=== PATIENT | female | born 1955 | race Caucasian/White ===

== ENCOUNTER 2020-10-31 14:20 | Outpatient (REF) | payer MEDICAID, SELFPAY | END 2020-10-31 14:21 | disposition home or self-care (01) | LOC: HO.RESP 14:20 | PROVIDERS: PCP Nurse Practitioner Family; Visit Provider Internal Medicine Pulmonary Disease | DX: Z13.89 Encounter for screening for other disorder (principal) ==

== ENCOUNTER → 2020-11-20 11:29 | Outpatient (BNVA) | payer MEDICAID, SELFPAY | PROVIDERS: PCP Nurse Practitioner Family; Visit Provider Surgery | DX: K43.2 Incisional hernia without obstruction or gangrene (principal) | CPT/HCPCS: 99212 ==

== ENCOUNTER → 2021-01-02 13:13 | Outpatient (BNVA) | payer MEDICAID, SELFPAY | PROVIDERS: PCP Nurse Practitioner Family; Visit Provider Internal Medicine | DX: I47.1 Supraventricular tachycardia (principal); I25.10 Atherosclerotic heart disease of native coronary artery without angina pectoris | CPT/HCPCS: 93005; 99202 ==

== ENCOUNTER → 2021-01-25 10:25 | Outpatient (REF) | payer MEDICAID, SELFPAY ==
--- NOTE | 2021-01-25 11:20 | ECG_ITS ---
Hook-up date: 2021-01-25 10:35:00 Duration: 47:59:00 Test Indications: I47.1 - Supraventricular tachyc Medications: 323706 QRS complexes 206 Ventricular ectopics which represent <1 % of total QRS comp. 34 Supraventricular ectopics which represent <1 % of total QRS comp. * Paced QRS complexs which represent % of total QRS comp. VENTRICULAR ECTOPY 198 Isolated 0 Bigeminal Cycles 4 Couplets 0 Runs 0 Beats in Runs * Beats LONGEST at * BPM at :: -- * Beats FASTEST at * BPM at :: -- SUPRAVENTRICULAR ECTOPY 27 Isolated 2 Couplets 1 Runs 3 Beats in Runs 3 Beats LONGEST at 121 BPM at 14:49:06 2021-01-26 3 Beats FASTEST at 121 BPM at 14:49:06 2021-01-26 HEART RATES 76 MIN at 23:11:59 2021-01-25 92 AVG 148 MAX at 21:52:24 2021-01-26 LONGEST RR 0.8240 secs at 04:52:15 2021-01-27 S-T LEVELS Channel 1 - 128 mm at 10:35:00 2021-01-25 - 128 mm at 10:35:00 2021-01-25 Channel 2 - 128 mm at 10:35:00 2021-01-25 - 128 mm at 10:35:00 2021-01-25 Channel 3 - 128 mm at 02:95:41 -- - 128 mm at 02:95:41 Basic rhythm Normal sinus rhythm No long pause or profound bradycardia Occasional Premature ventricular complexes No diary submitted Referred By: Kirt Mayen Overread By: SRINIVAS MCGOWAN MD
== END ==
LOC: HO.CARD 10:25
PROVIDERS: PCP Nurse Practitioner Family; Visit Provider Internal Medicine
DX: I47.1 Supraventricular tachycardia (principal)
CPT/HCPCS: 93226

== ENCOUNTER 2021-01-26 14:32 | Outpatient (REF) | payer MEDICAID, SELFPAY | END 2021-01-26 14:33 | disposition home or self-care (01) | LOC: HO.RESP 14:32 | PROVIDERS: PCP Nurse Practitioner Family; Visit Provider Internal Medicine Pulmonary Disease | DX: J44.9 Chronic obstructive pulmonary disease, unspecified (principal); J84.89 Other specified interstitial pulmonary diseases; M06.9 Rheumatoid arthritis, unspecified; F17.200 Nicotine dependence, unspecified, uncomplicated; Z79.899 Other long term (current) drug therapy | CPT/HCPCS: 94060; 94727; 94729; 99212 ==

== ENCOUNTER → 2021-02-06 13:34 | Outpatient (BNVA) | payer MEDICAID, SELFPAY | PROVIDERS: PCP Nurse Practitioner Family; Visit Provider Internal Medicine ==

== ENCOUNTER → 2021-07-05 13:19 | Outpatient (BNVA) | payer MEDICARE, MEDICAID, SELFPAY | PROVIDERS: PCP Nurse Practitioner Family; Visit Provider Internal Medicine Pulmonary Disease | DX: J44.9 Chronic obstructive pulmonary disease, unspecified (principal); J84.89 Other specified interstitial pulmonary diseases; R06.00 Dyspnea, unspecified | CPT/HCPCS: 99212 ==

== ENCOUNTER → 2021-08-29 13:38 | Outpatient (BNVA) | payer MEDICARE, MEDICAID, SELFPAY | PROVIDERS: PCP Nurse Practitioner Family; Referring Provider Nurse Practitioner Family; Visit Provider Internal Medicine | DX: I47.1 Supraventricular tachycardia (principal); I25.10 Atherosclerotic heart disease of native coronary artery without angina pectoris; F17.200 Nicotine dependence, unspecified, uncomplicated | CPT/HCPCS: 99212 ==

== ENCOUNTER → 2021-08-30 11:10 | Outpatient (BNVA) | payer MEDICARE, MEDICAID, SELFPAY | PROVIDERS: PCP Nurse Practitioner Family; Visit Provider Internal Medicine Pulmonary Disease | DX: J44.9 Chronic obstructive pulmonary disease, unspecified (principal); J84.89 Other specified interstitial pulmonary diseases; R06.00 Dyspnea, unspecified | CPT/HCPCS: 99212 ==

== ENCOUNTER → 2021-10-05 13:20 | Outpatient (BNVA) | payer MEDICARE, MEDICAID, SELFPAY | PROVIDERS: PCP Nurse Practitioner Family; Visit Provider Internal Medicine Pulmonary Disease | DX: J44.1 Chronic obstructive pulmonary disease with (acute) exacerbation (principal); F17.210 Nicotine dependence, cigarettes, uncomplicated; J84.89 Other specified interstitial pulmonary diseases; M06.9 Rheumatoid arthritis, unspecified | CPT/HCPCS: 99212 ==